=== PATIENT | female | born 1975 | race African-American/Black ===

== ENCOUNTER 2017-03-21 13:59 | Emergency (ER) | payer OTHER ==
--- NOTE | 2017-03-21 16:03 | ERNOTE ---
Medical Problem HPI - Narrative Date of Service: 03/21/17 - General Chief Complaint: General Assessment Time Seen by Provider: 03/21/17 15:55 Source: patient Exam Limitations: no limitations - Immun/Allergies/Home Medications Immunizations: IMMUNIZATION HX Immunizations Up to Date Yes History of Influenza Vaccine No Hx Pneumococcal Vaccination No Allergies/Adverse Reactions: Allergies metronidazole [From Flagyl] Adverse Reaction (Mild, Verified 03/21/17 14:07) Nausea Home Medications: HOME MEDICATIONS Blood Sugar Diagnostic [Glucose Test Strip] 1 each MC DAILY 08/06/16 [Last Taken Unknown] Ferrous Sulfate 325 mg PO DAILY 08/06/16 [Last Taken Unknown] glipiZIDE [Glucotrol] 10 mg PO BID 08/06/16 [Last Taken Unknown] Multivitamins [Multivitamin Rito] 1 cap PO DAILY 08/15/16 [Last Taken Unknown] oxyCODONE HCL/ACETAMINOPHEN [Percocet 5 MG/325 MG] 1 - 2 tab PO Q4H PRN #30 tab 08/15/16 [Last Taken Unknown] Cephalexin Monohydrate [Keflex] 500 mg PO QID 09/02/16 [Last Taken Unknown] Etodolac 500 mg PO BID 09/02/16 [Last Taken Unknown] Acyclovir [Zovirax] 400 mg PO 5XD #25 tablet 03/21/17 [Last Taken Unknown] predniSONE [Prednisone] See Taper PO DAILY #18 tablet 03/21/17 [Last Taken Unknown] - History of Present History Narrative: 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 she is having controlling her ability to drink and close her right eye. Date (Duration): 03/21/17 Timing: getting worse Severity: mild Modifying Factors - (Worsens): Present: movement Review of Systems - Narrative Narrative: patient states she has a nagging SMART and face numbness. . - Review of Systems Constitutional: Present: See HPI, recent illness - strep 2 weeks ago EYE: Present: see HPI, other - tearing, right eye ENT: Present: no symptoms reported Respiratory: Present: no symptoms reported Cardiology: Present: no symptoms reported Gastrointestinal/Abdominal: Present: no symptoms reported Genitourinary: Present: no symptoms reported Musculoskeletal: Present: no symptoms reported Skin: Present: no symptoms reported Neurological: Present: See HPI Endocrine: Present: no symptoms reported Hematologic/Lymphatic: Present: no symptoms reported Psych: Present: no symptoms reported All Other Systems: All systems neg except as marked - Patient's Past Medical History Patient History - Medical: Anemia, Diabetes Type 2, GERD Additional info: 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 Patient History - Cardiac/Respiratory: Myocardial Infarction Patient History - Cancer: No Hx of Cancer Patient History - Surgical Procedures: D & C, Hysterectomy, Other Patient History - Other: None - Family History Mother Family History - Medical: , Diabetes Type 2, Osteoarthritis Family History - Cardiac/Respiratory: Asthma, Myocardial Infarction Father Family History - Medical: Family History - Cardiac/Respiratory: No pertinent hx - Social History Living Situations: home Abuse History: No History of abuse Psych History: No pertinent hx Smoking Status: Current every day smoker Have you smoked in the past 12 months: Yes Alcohol Use: occasionally Drug Use: none - Immunizations Immunizations Up to Date: Yes Hx Pneumococcal Vaccination: No History of Influenza Vaccine: No Physical Exam - Physical Exam Narrative: Patient has unilateral sided facial paralysis to her right side. Patient is able to close both of her eyes adequately at this time. Patient states that she [facility] where she was diagnosed as positive but today states it feels worse. Patient states she was put on any medications for her Alvarado's palsy at the outside hospital. General Appearance: Present: wd/wn, alert, no apparent distress Eye Exam: PERRL: bilateral, Eye drainage: right - watery Ears, Nose, Throat: Present: normal ENT inspection, normal pharynx Neck: Present: normal inspection, nontender, full range of motion Respiratory: Present: no respiratory distress, normal breath sounds, no accessory muscle use, chest nontender, lungs clear Cardiovascular/Chest: Present: regular rate, rhythm, no murmur, normal peripheral pulses Peripheral Pulses: N=norm/S=strong/W=weak/B=bound/A=absent: Radial (R): Normal, Radial (L): Normal, Dorsalis-pedis (R): Normal, Dorsalis-pedis (L): Normal Gastrointestinal/Abdominal: Present: normal bowel sounds, nontender, nondistended, soft, no organomegaly Back Exam: Present: normal inspection, normal range of motion, no CVA tenderness , no vertebral tenderness Extremity Exam: Present: normal inspection, non-tender, normal range of motion, no edema Neurological Exam: Present: alert, oriented, normal mood/affect, facial droop - right side of face Skin Exam: Present: normal color, warm/dry Lymphatic Exam: Present: no adenopathy ED Progress - Date and Time Seen: Date and Time: 03/21/17 18:34 I obtained a copy of her ER record with her lab results and Ct scan. - Vital Signs Patient's Vital Signs:: I have reviewed the patient's vital signs. Vital Signs: Vital Signs 03/21/17 14:03 Temperature 36.8 C Pulse Rate 79 Respiratory 16 Rate Blood Pressure 122/79 O2 Sat by Pulse 97 Oximetry - Progress/Reassessment Chief Complaint: General Assessment Progress:: Improved Plan - Plan Plan: patient is to start steroids and antivirals. She will follow up with her PCP on Thursday. Departure - Departure Clinical Impression: Alvarado's palsy Disposition: Home Follow Up Needed Condition: Stable Instructions: Alvarado Palsy Additional Instructions: Patient is to continue Her previous home medications. Continue to monitor sugars closely while taking steroids. Follow-up with your primary care provider on Thursday related to this issue. Return to the emergency room if symptoms persist or become worse. Referrals: Jayy Harris MD [Primary Care Provider] - Prescriptions: Acyclovir [Zovirax] 400 mg PO 5XD #25 tablet predniSONE [Prednisone] See Taper PO DAILY #18 tablet
[2017-03-21] MEDS ORDERED: predniSONE 20 MG TABLET PO ONE (16:09)
--- OUTSIDE RECORDS SUMMARY | 2017-03-21 16:18 | XMS REPORT | Continuity of Care Document ---
:1975 Author Organization [facility] ([facility]) Address [place] [address] Phone [phone] Care Team Providers Name Role Phone Jayy Healy Primary Care Provider [phone] Source Comments This disclosure is being made pursuant to the Care Everywhere program, applicable federal and state laws, and may not contain all informaitonavailable regarding this patient.[facility] ([facility]) Active Allergies and Adverse Reactions Allergen Noted Date Severity Reactions Comments Metronidazole 09/18/2016 Nausea & Vomiting Current Medications Prescription Sig. Disp. Refills Start Date End Date Status norethindrone 5 mg Take 1 Tab by mouth 60 Tab 0 11/29/2014 Active tablet as instructed. Indications: ABNORMAL UTERINE BLEEDING DUE TO HORMONAL IMBALANCE norethindrone Take 1 Tab by mouth 30 Tab 0 11/29/2014 Active (NOR-Q.D.) 0.35 mg daily. Indications: tablet Bleeding docusate 100 mg Take 1 Cap by mouth 2 30 Cap 2 11/29/2014 Active capsule times daily as needed. Indications: CONSTIPATION ferrous sulfate 325 mg Take 1 Tab by mouth 2 30 Tab 2 11/29/2014 Active (65 mg iron) tablet times daily. Indications: Anemia glipiZIDE 10 mg tablet Take 10 mg by mouth 2 Active times daily with meals. 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 Height 1.626 m (5' 4") 09/18/2016 12:40 PM CDT Weight 81.05 kg (178 lb 10.9 oz) 09/18/2016 12:40 PM CDT Body Mass Index 30.66 09/18/2016 12:40 PM CDT Oxygen Saturation 99% 11/29/2014 10:25 PM 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
[2017-03-21] MEDS ORDERED: predniSONE 20 MG TABLET ONE (16:31)
[2017-03-21] MEDS ORDERED: ACETAMINOPHEN 500 MG TABLET PO ONE (17:33)
[2017-03-21 18:14] VITALS: BP 123/76
== END 2017-03-21 18:15 | disposition home or self-care (01) ==
LOC: ER 13:59
DX: G51.0 Bell's palsy (principal); F17.210 Nicotine dependence, cigarettes, uncomplicated

== ENCOUNTER 2017-10-04 11:06 | Emergency (ER) | payer OTHER ==
--- NOTE | 2017-10-04 11:36 | ERNOTE ---
Medical Problem HPI - Narrative Date of Service: 10/04/17 - General Chief Complaint: General Assessment Time Seen by Provider: 10/04/17 11:20 Source: patient Exam Limitations: no limitations - Immun/Allergies/Home Medications Immunizations: IMMUNIZATION HX Immunizations Up to Date Yes History of Influenza Vaccine No Hx Pneumococcal Vaccination No Allergies/Adverse Reactions: Allergies metronidazole [From Flagyl] Adverse Reaction (Mild, Verified 10/04/17 11:13) Nausea Home Medications: HOME MEDICATIONS Blood Sugar Diagnostic [Glucose Test Strip] 1 each MC DAILY 08/06/16 [Last Taken Unknown] glipiZIDE [Glucotrol] 10 mg PO BID 08/06/16 [Last Taken Unknown] Multivitamins [Multivitamin Rito] 1 cap PO DAILY 08/15/16 [Last Taken Unknown] - History of Present History Narrative: Patient states that since Thursday she has had a constant headache with nausea and some photophobia. Also had right lower tooth pain so she went to the dentist and was placed on antibiotics, tylenol #3, and prednisone. The teeth feel better but the headache and nausea have persisted. Date (Duration): 09/28/17 Timing: constant Severity: moderate Modifying Factors - (Improves): Present: medication Modifying Factors - (Worsens): Present: eating, other - More nauseated. Review of Systems - Narrative Narrative: States when she eats her nausea becomes worse along with a pounding headache when she lies down. However she will go to sleep and wakeup headache free and then it will restart again. Denies any dyspnea, CP, or abdominal pain. No dysurea or constipation. - Review of Systems Constitutional: Present: no symptoms reported EYE: Present: other - Photophobia with the headache. Is not constant. ENT: Present: no symptoms reported, other - Did have the right lower tooth pain but is improved with treatment. Respiratory: Present: no symptoms reported Cardiology: Present: no symptoms reported Gastrointestinal/Abdominal: Present: nausea, other - Denies abdominal pain. Genitourinary: Present: no symptoms reported Musculoskeletal: Present: no symptoms reported Skin: Present: no symptoms reported Neurological: Present: headache - Denies this being the worst headache of her life. Denies any numbness or tingling. Endocrine: Present: no symptoms reported Hematologic/Lymphatic: Present: no symptoms reported Psych: Present: no symptoms reported - Patient's Past Medical History Patient History - Medical: Anemia, Diabetes Type 2, GERD Patient History - Cardiac/Respiratory: Myocardial Infarction Patient History - Cancer: No Hx of Cancer Patient History - Surgical Procedures: D & C, Hysterectomy, Other Patient History - Other: None - Family History Mother Family History - Medical: , Diabetes Type 2, Osteoarthritis Family History - Cardiac/Respiratory: Asthma, Myocardial Infarction Father Family History - Medical: Family History - Cardiac/Respiratory: No pertinent hx - Social History Living Situations: home Abuse History: No History of abuse Psych History: No pertinent hx Alcohol Use: none Drug Use: none - Immunizations Immunizations Up to Date: Yes Hx Pneumococcal Vaccination: No History of Influenza Vaccine: No Physical Exam - Physical Exam General Appearance: Present: wd/wn, alert, no apparent distress Head Exam: Present: normal inspection, no evidence of injury, no tenderness w palpation Eye Exam: Normal inspection: bilateral, PERRL: bilateral, EOMI: bilateral Ears, Nose, Throat: Present: normal ENT inspection, normal pharynx, other - Teeth and gums appear of normal appearance. No signs of infection. Neck: Present: normal inspection, nontender, supple, full range of motion, other - Negative nuchal rigidity Respiratory: Present: no respiratory distress, normal breath sounds, no accessory muscle use, chest nontender, lungs clear Cardiovascular/Chest: Present: regular rate, rhythm, no murmur, normal peripheral pulses Peripheral Pulses: N=norm/S=strong/W=weak/B=bound/A=absent: Radial (R): Normal, Radial (L): Normal Gastrointestinal/Abdominal: Present: normal bowel sounds, nontender, nondistended, soft, no organomegaly Extremity Exam: Present: normal inspection, normal range of motion Neurological Exam: Present: alert, oriented, normal mood/affect, no motor/ sensory deficits, 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 - Vital Signs Patient's Vital Signs:: I have reviewed the patient's vital signs. Vital Signs: Vital Signs 10/04/17 11:09 Temperature 36.9 C Pulse Rate 80 Respiratory 12 Rate Blood Pressure 126/99 O2 Sat by Pulse 100 Oximetry - Progress/Reassessment Chief Complaint: General Assessment Progress:: Improved Progress Note-Subjective: 10/04/17 12:36 States headache and dizziness have improved. Denies being drowsy. Departure Clinical Impression: Migrainous dizziness Headache Qualifiers: Headache type: tension-type Headache chronicity pattern: acute headache Intractability: not intractable Qualified Code(s): G44.209 - Tension-type headache, unspecified, not intractable - Departure Disposition: Home self-care Condition: Good Additional Instructions: No acute findings to explain your symptoms. Could possibly be related to your antibiotic treatment for the teeth infection. Try using over the counter meclazine 25 mg every 8 hrs as needed for dizziness but may make you drowsy so take with caution. Fully expect you to improve after teeth treatment is over. Also drink more water and aggressively manage your blood sugars to keep them more under control. Follow up with family provider for further assessment and evaluation. Referrals: Jayy Harris MD [Primary Care Provider] -
[2017-10-04] MEDS ORDERED: KETOROLAC TROMETHAMINE 60 MG/2 ML VIAL IM ONE ×2 (11:37→11:58)
[2017-10-04] MEDS ORDERED: PROMETHAZINE HCL 25 MG/ML AMPUL IM ONE (11:38)
[2017-10-04 11:58] LABS: Urine Appearance Slightly Cloudy; Urine Color Yellow
[2017-10-04] MEDS ORDERED: PROMETHAZINE HCL 25 MG/ML AMPUL ONE (11:58)
[2017-10-04 11:59] LABS: Urine Bacteria None Seen; Urine Bilirubin Negative (NEGATIVE); Urine Blood Negative /ul (NEGATIVE); Urine Ketone Negative (NEGATIVE); Urine Nitrite Negative (NEGATIVE); Urine Protein Negative (NEGATIVE); Urine RBC None Seen /hpf (0-5); Urine Urobilinogen Normal (NORMAL); Urine WBC 0-5 /hpf (0-5)
[2017-10-04 12:02] LABS: Hematocrit 41.6 % (37.0-47.0); Hemoglobin 13.9 gm/dL (12.5-16.0); Mean Cell Volume 86.3 fl (78-100); Mean Corpuscular Hemoglobin 28.8 pg (27-31); Mean Corpuscular Hgb Conc 33.4 g/dl (32-36); Mean Platelet Volume 10.7 fl (6.0-9.5); Platelet Count 266 K/mm3 (150-450); Red Blood Count 4.82 M/mm3 (4.2-5.4); Red Cell Distribution Width 13.8 % (11.5-14.0); White Blood Count 10.6 K/mm3 (4.0-10.5)
[2017-10-04 12:05] LABS: Anion Gap 15.1 mmol/L (6.8-13.8); BUN/Creatinine Ratio 24.6 (9.0-21.6); Calcium * 9.6 mg/dL (7.9-10.9); Carbon Dioxide 26.7 mmol/L (24-32.6); Estimated Creat Clear 93.6; Potassium 3.8 mmol/L (3.4-4.6)
[2017-10-04 12:06] LABS: Total Cells Counted 100
[2017-10-04 12:24] LABS: Atypical (Reactive) Lymph 13 % (0-2); Band 1 % (0-2.0); Lymphocyte 53 % (20-51); Monocyte 2 % (0-9); Neutrophil 31 % (42-75); Neutrophil # 3.3 K/mm3 (1.3-6.0); Platelet Estimate Normal (NORMAL); RBC Morphology Normal (NORMAL)
[2017-10-04 12:41] VITALS: BP 125/90
== END 2017-10-04 12:37 | disposition home or self-care (01) ==
LOC: ER 11:06
DX: R42 Dizziness and giddiness (principal); G44.209 Tension-type headache, unspecified, not intractable; E11.9 Type 2 diabetes mellitus without complications